=== PATIENT | female | born 1995 | race Two or more races ===

== ENCOUNTER 2021-08-28 19:24 | Emergency (ER) | payer OTHER ==
[2021-08-28 19:48] VITALS: BP 144/83; PULSE 102; TEMP 99.8; BMI 38.7
[2021-08-30 23:07] LABS: SARS-CoV-2 NAA Detected (Not Detected)
== END 2021-08-28 23:33 | disposition home or self-care (01) ==
LOC: JER 19:24
DX: O26.893 Other specified pregnancy related conditions, third trimester (principal); R09.81 Nasal congestion; Z3A.32 32 weeks gestation of pregnancy
CPT/HCPCS: 87804; 99283-25; C9803; U0003; U0005